=== PATIENT | male | born 1950 | race African-American/Black ===

== ENCOUNTER 2017-03-14 20:04 | Emergency (ER) | payer MEDICARE, BC ==
[~2017-03-14] VITALS: Ht 177.8 cm; Wt 108.9 kg
[2017-03-14] MEDS ORDERED: LIDOCAINE 1%/EPI 1:100,000 20 ML VIAL. INJ ONE (20:30)
[2017-03-14] MEDS ORDERED: IBUPROFEN 600 MG TABLET. PO ONE (21:30)
[2017-03-14] MEDS ORDERED: HYDROcodone/APAP 5/325MG 1 TAB TABLET PO ONE (21:30)
--- NOTE | 2017-03-14 22:04 | RAD ---
Exam performed: CT scan of the head and cervical spine without contrast. Date of Service: 03/14/2017. Comparison: None available Clinical History: Patient fell down 2 steps and hit left side of the head compared of headache and neck pain and laceration of the left eye Technique: Helical acquisitions are obtained from the foramen magnum to the vertex without intravenous administration of contrast. In addition helical acquisitions are obtained through the cervical spine. Sagittal and coronal reformatted images are obtained and reviewed. CT scan head findings: The ventricular system is midline without evidence of dilatation. Normal moran-white differentiation is maintained. There is no extra axial fluid collection, intraparenchymal hemorrhage or mass lesion. There is soft tissue swelling around the left orbit with a questionable lucency in the left frontal bone. Impression: 1. No acute intracranial process detected. 2. Lucency in the left frontal bone with overlying soft tissue swelling. A nondisplaced fracture is not excluded. Evaluation with CT maxillofacial maybe of additional benefit. End Impression. CT cervical spine findings: Normal sagittal alignment is preserved. The vertebral body heights and intravertebral disc spaces are maintained. There is no gama or retrolisthesis. No prevertebral soft tissue swelling is identified. Fracture C6 spinous process is noted. No definite lymphadenopathy or masses are seen within the neck. The visualized thyroid and salivary glands appears preserved. Impression: 1. Vertically oriented lucency in 6 transverse process represents a fracture. There is probable sclerosis of the fractured margin and this could represent a nonacute fracture. Correlation clinically PQRS Compliance Statement: One or more of the following individualized dose reduction techniques were utilized for this examination: 1. Automated exposure control 2. Adjustment of the mA and/or kV according to patient size 3. Use of iterative reconstruction technique Electronically signed by: Sabina Sanders MD (03/14/2017 10:00 PM) [facility]
--- NOTE | 2017-03-14 23:38 | RAD ---
CT maxillofacial and orbits without contrast History: Trauma Axial helical images of the face including the paranasal sinuses orbits and mandible were obtained without contrast. Axial and coronal reconstruction was performed. The nasal septum is mostly midline. The ostiomeatal complexes are narrow but patent. The paranasal sinuses are clear. The visualized osseous structures appear intact. There is soft tissue edema around the left orbit. Impression: No acute bony abnormality. PQRS Compliance Statement: One or more of the following individualized dose reduction techniques were utilized for this examination: 1. Automated exposure control 2. Adjustment of the mA and/or kV according to patient size 3. Use of iterative reconstruction technique Electronically signed by: Cuate Herrera III, MD (03/14/2017 11:34 PM) [facility]
[2017-03-15 01:00] VITALS: BP 141/66
[2017-03-15] MEDS ORDERED: HYDR-971 PO (01:10)
[2017-03-15] MEDS ORDERED: IBUP-1007 PO (01:10)
--- NOTE | 2017-03-15 01:10 | PHYS DOC ---
Past Medical History Past Medical History: High Cholesterol, Hypertension Past Surgical History: Other Additional Past Surgical Histo: BLE, BILATERA HIPS, HERNIA REPAIR, HEMORRHOID REPAIR, FACE Alcohol Use: Occasionally Drug Use: None Adult General Chief Complaint Chief Complaint: MECHANICAL FALL HPI HPI Patient is a 66 year old gentleman who presents here today secondary to a recent fall. Patient reports she was walking down the stairs to his basement when he tripped over the last 2 steps and fell into the wall across from the steps. Patient denies any loss of consciousness. Patient is complaining of some neck discomfort and left shoulder pain. Patient's tetanus status is up-to-date. He reports his last shot was less than 5 years ago. Patient denies any nausea or vomiting. Patient denies any amnesia. Patient denies any blurred vision or double vision. Patient has any weakness his upper or lower semis. Patient denies any paresthesias to his upper or lower extremities. Patient has a history significant for hip replacement, anal hernia repair, hypertension. Patient has any diabetes liver longer kidney problems. Patient denies any coronary disease. Patient denies any trauma to his neck in the past. In the ER the patient had a CT scan of his head and C-spine. Patient's CT scan revealed a questional left frontal lucency/fracture and a maxillofacial CT scan was dedicated was obtained. The maxilla facial CT scan do not reveal any frontal bone fracture. Patient had a CT scan of his C-spine which revealed a transverse process fracture of his C7. This appeared to have some sclerosis which was indicative of a likely old fracture however given the patient's tenderness in that areaconcerned that this might be a new fracture. I consulted Dr. Abdullahi for further assistance in management of the C-spine spinous process fracture. I spoke to his PA who spoke directly to him. She reports that he directly reviewed the CT scan and felt that the spinous process fracture of C7 appear to be old. After discussion with his PA she reports that this would be a fracture that we would place in a soft collar if it was new. I will assume that this is a new fracture than an old placed patient in a soft neck collar and she reports she will follow-up with him next week. Patient has a stellate laceration to his left forehead which was sutured by our PA, Catie Magdaleno. Patient's physical exam was significant for a stellate laceration to his left forehead. Patient had no point bony tenderness to his forehead. Patient's pupils were equally round and reactive to light. His affect promotions were intact. Patient's cranial nerves to 12 are all intact. Patient had some tenderness to palpation diffusely to his neck with no point bony tenderness that was specific to C7 however he was tender all throughout. Patient does have some tenderness to palpation to his left shoulder. Patient's full range of motion to his left shoulder. Patient has no point bony tenderness to his left clavicle or scapula. Patient's C-spine had full range of motion without any paresthesias or weakness his upper or lower extremities. Patient had full flexion/rotation of the C-spine with no paresthesias or weakness his upper or lower extremities. Patient's heart was regular rate and rhythm. Lungs were clear. Abdomen was soft nontender no rebound or guarding. All other bones are palpated and there was no tenderness to palpation appreciated. Patient's pelvis was stable. Patient's knees were nontender. Patient's elbows and wrists were nontender. Patient's L spine was nontender to palpation. Assessment and plan this is a 66-year-old gentleman who fell down 2 steps and hit his head against a wall. Patient had no loss of consciousness. However given the laceration and his age CT scan of his head and C-spine were obtained. Patient's CT scan of the C-spine revealed a C6 spinous process fracture. There was no other acute pathology noted. Case was discussed with Dr. Abdullahi's PA as well as Dr. Abdullahi himself through his PA who reviewed the CT scan prior to calling me back. They've recommended that we place the patient and a soft collar and they will follow up with him as an outpatient. Patient's pain is well -controlled and he is requesting to be discharged home and does not want to be admitted to the hospital for pain management. Review of Systems Review of Systems Constitutional: Denies fever or chills [] Eyes: Denies change in visual acuity, redness, or eye pain [] HENT: Denies nasal congestion or sore throat [] All other review systems are negative except as documented in the history of present illness portion. Current Medications Current Medications Current Medications Medications (Trade) Dose Ordered Sig/Tresa Start Time Stop Time Status Last Admin Dose Admin Acetaminophen/ Hydrocodone Bitart (Lortab 5/325) 1 tab 1X ONCE 03/14/17 21:30 03/14/17 21:31 DC 03/14/17 21:47 1 TAB Ibuprofen (Motrin) 600 mg 1X ONCE 03/14/17 21:30 03/14/17 21:31 DC 03/14/17 21:48 600 MG Lidocaine/ Epinephrine (Xylocaine 1%-Epi 1:100,000) 20 ml 1X ONCE 03/14/17 20:30 03/14/17 20:31 DC 03/14/17 20:36 20 ML Allergies Allergies Allergies Coded Allergies Type Severity Reaction Last Updated Verified Penicillins Allergy Unknown 03/14/17 Yes Physical Exam Physical Exam Constitutional: Well developed, well nourished, no acute distress, non-toxic appearance. [] HENT: Normocephalic, bilateral external ears normal, oropharynx moist, no oral exudates, nose normal. [] Eyes: PERRLA, EOMI, conjunctiva normal, no discharge. [] Neck: Normal range of motion, supple, no stridor. [] Cardiovascular:Heart rate regular rhythm, Lungs & Thorax: Bilateral breath sounds clear to auscultation [] Abdomen: Bowel sounds normal, soft, no tenderness, no masses, no pulsatile masses. [] Skin: Warm, dry, no erythema, no rash. [] Back: No tenderness, no CVA tenderness. [] Extremities: No tenderness, no cyanosis, no clubbing, ROM intact, no edema. [] Neurologic: Alert and oriented X 3, normal motor function, normal sensory function, no focal deficits noted. [] Psychologic: Affect normal, judgement normal, mood normal. [] Current Patient Data Vital Signs Vital Signs Date Time Temp Pulse Resp B/P (MAP) Pulse Ox O2 Delivery O2 Flow Rate FiO2 03/15/17 01:00 56 141/66 (91) 98 Room Air 03/14/17 20:15 98.3 20 98.3 EKG EKG [] Radiology/Procedures Radiology/Procedures Indication: Left eyebrow laceration Procedure: The patient was placed in the appropriate position and anesthesia around the laceration was lidocaine with epinephrine. The area was then explored for foreign objects, none was found, the laceration was cleaned with 10 ML of normal saline and Betadine. In the laceration was closed with 5 interrupted sutures using 5. 0 vicryl, exterior laceration was closed with 20 5 interrupted sutures using 5. 0 Vicryl. The wound area was then left VILMA. Total repaired wound length: approximately 15 cm in X pattern Other Items: none The patient tolerated the procedure well Complications:none Course & Med Decision Making Course & Med Decision Making Pertinent Labs and Imaging studies reviewed. (See chart for details) [] Dragon Disclaimer Dragon Disclaimer This electronic medical record was generated, in whole or in part, using a voice recognition dictation system. Departure Departure Impression: Primary Impression: Fracture of spinous process of cervical vertebra Additional Impressions: Concussion Forehead laceration Fall (on) (from) other stairs and steps, initial encounter Disposition: HOME, SELF-CARE Condition: IMPROVED Referrals: ALPA CRAIG MD (PCP) ROSHAN TAPIA MD Patient Instructions: Cervical Spine Fracture, Stable, Concussion and Brain Injury, Facial Laceration Additional Instructions: 1. Please call Dr. Abdullahi's office in the morning to make an appointment to see him next week. The phone number has been provided to you and your discharge instructions. 2. Please wear her soft collar until you are reevaluated by Dr. Abdullahi's service. 3. Please return the ER if you have any further concerns. Please return to the ER. Any weakness numbness or tingling in her upper or lower extremities. Please return to the ER if you have pain that is not resolved with the medicine that is being given too. 4. He will need a wound check in 2 days. He will need her sutures removed in 7 days. Scripts Hydrocodone/Apap 5-325 (NORCO 5-325 TABLET) 1 Each Tablet 1 TAB PO QID Y for PAIN, #20 TAB Prov: ISHAN WEAVER MD 03/15/17 Ibuprofen (IBUPROFEN) 600 Mg Tablet 600 MG PO PRN Q6HRS Y for PAIN, #20 TAB Prov: ISHAN WEAVER MD 03/15/17 Problem Qualifiers ISHAN WEAVER MD Mar 15, 2017 01:10 CATIE SNYDER APRN Mar 15, 2017 01:18
== END 2017-03-15 01:37 | disposition home or self-care (01) ==
LOC: ER 20:04
DX: S06.0X9A Concussion with loss of consciousness of unspecified duration, initial encounter (principal); S12.500A Unspecified displaced fracture of sixth cervical vertebra, initial encounter for closed fracture; S01.81XA Laceration without foreign body of other part of head, initial encounter; M25.512 Pain in left shoulder; E11.9 Type 2 diabetes mellitus without complications; E78.00 Pure hypercholesterolemia, unspecified; I10 Essential (primary) hypertension; Z88.0 Allergy status to penicillin; W10.8XXA Fall (on) (from) other stairs and steps, initial encounter; Y93.01 Activity, walking, marching and hiking; Y99.8 Other external cause status; Y92.89 Other specified places as the place of occurrence of the external cause
CPT/HCPCS: 12016; 70450; 70486; 72125; 99284; J3490

== ENCOUNTER 2020-12-24 09:59 | Emergency (ER) | payer BC, MEDICARE ==
[~2020-12-24] VITALS: Ht 177.8 cm; Wt 102.0 kg
[~2020-12-24 09:59] MED LIST: HYDR-3164 PO; IBUP-1007 PO
[2020-12-24 10:30] LABS: BASO % 0 % (0-3); EOS % 0 % (0-3); HEMATOCRIT 35.9 % (39.0-53.0); HEMOGLOBIN 12.4 g/dL (13.0-17.5); LYMPH # 0.9 x10^3/uL (1.0-4.8); LYMPH % 8 % (24-48); MEAN CORPUSCULAR HEMOGLOBIN 32 pg (25-35); MEAN CORPUSCULAR HGB CONC 35 g/dL (31-37); MEAN CORPUSCULAR VOLUME 92 fL (79-100); MONO # 0.7 x10^3/uL (0.0-1.1); MONO % 6 % (0-9); NEUT # 9.4 x10^3/uL (1.8-7.7); NEUT % 85 % (31-73); PLATELET COUNT 282 x10^3/uL (140-400); RED BLOOD COUNT 3.89 x10^6/uL (4.30-5.70); RED CELL DISTRIBUTION WIDTH 12.6 % (11.5-14.5)
[2020-12-24] MEDS ORDERED: fentaNYL PF VIAL 100 MCG/2 ML VIAL IVP ONE (10:30)
[2020-12-24 10:45] VITALS: BP 112/67
--- NOTE | 2020-12-24 10:52 | PHYS DOC ---
Past Medical History Past Medical History: High Cholesterol, Hypertension Past Surgical History: Other Additional Past Surgical Histo: BLE, BILATERA HIPS, HERNIA REPAIR, HEMORRHOID REPAIR, FACE Smoking Status: Never Smoker Alcohol Use: Occasionally Drug Use: None General Adult EDM: Chief Complaint: TESTICULAR PAIN OR INJURY HPI: HPI: Patient is a 70 year old male who presents with awoke this morning with scrotal swelling and tenderness especially to the left side. He rates his pain an 8 out of 10 states is very tender and sore. He denies any urinary symptoms, chest pain, fever, abdominal pain, nausea, vomiting, diarrhea, back pain, shortness of breath. He has a history of high cholesterol, hypertension, bilateral hip repair, hernia repair, hemorrhoids, marijuana use. Review of Systems: Review of Systems: Constitutional: Denies fever or chills. [] Eyes: Denies change in visual acuity. [] HENT: Denies nasal congestion or sore throat. [] Respiratory: Denies cough or shortness of breath. [] Cardiovascular: Denies chest pain or edema. [] GI: Denies abdominal pain, nausea, vomiting, bloody stools or diarrhea. [] : Denies dysuria. +Testicle pain[] Musculoskeletal: Denies back pain or joint pain. [] Integument: Denies rash. +scrotal swelling[] Neurologic: Denies headache, focal weakness or sensory changes. [] Endocrine: Denies polyuria or polydipsia. [] Lymphatic: Denies swollen glands. [] Psychiatric: Denies depression or anxiety. [] Heart Score: C/O Chest Pain: No Risk Factors: Risk Factors: DM, Current or recent (<one month) smoker, HTN, HLP, family history of CAD, obesity. Risk Scores: Score 0 - 3: 2.5% MACE over next 6 weeks - Discharge Home Score 4 - 6: 20.3% MACE over next 6 weeks - Admit for Clinical Observation Score 7 - 10: 72.7% MACE over next 6 weeks - Early Invasive Strategies Allergies: Allergies: Allergies Coded Allergies Type Severity Reaction Last Updated Verified Penicillins Allergy Unknown 03/14/17 Yes Physical Exam: PE: Constitutional: Well developed, well nourished, no acute distress, non-toxic appearance. [] HENT: Normocephalic, atraumatic, bilateral external ears normal, oropharynx moist, no oral exudates, nose normal. [] Eyes: PERRLA, EOMI, conjunctiva normal, no discharge. [] Neck: Normal range of motion, no tenderness, supple, no stridor. [] Cardiovascular:Heart rate regular rhythm, no murmur [] Lungs & Thorax: Bilateral breath sounds clear to auscultation [] Abdomen: Bowel sounds normal, soft, no tenderness, no masses, no pulsatile masses. Left testicle tenderness[] Skin: Warm, dry, no erythema, no rash. Scrotal redness that goes up into pelvic area on the left and swelling[] Back: No tenderness, no CVA tenderness. [] Extremities: No tenderness, no cyanosis, no clubbing, ROM intact, no edema. [] Neurologic: Alert and oriented X 3, normal motor function, normal sensory function, no focal deficits noted. [] Psychologic: Affect normal, judgement normal, mood normal. [] EKG: EK and read by Dr. Woods is sinus rhythm and no STEMI Radiology/Procedures: Radiology/Procedures: [] Impression: [facility] [address] [place] [address] IMAGING REPORT Signed PATIENT: CAPRI MONTANEZ ACCOUNT: [id number] : 1950 LOCATION: ER AGE: 70 SEX: M EXAM STATUS: REG ER ORD. PHYSICIAN: TAMIA RAYGOZA APRN REASON: left testicle tenderness, scrotal swelling PROCEDURE: TESTICULAR/SCROTUM Testicular ultrasound HISTORY: Left testicular swelling and pain Sonographic examination was performed of the scrotal contents and testes and multiple static images were obtained. The testes have normal echotexture and blood flow. The right testis measures 3.3 x 3.0 x 2.6 cm. The left testis measures 3.3 x 3.4 x 2.1 cm. There is complex fluid around the left testis. The obtaining my appear somewhat enlarged and hypervascular. IMPRESSION: 1. Normal testes with normal testicular blood flow. 2. Possible bilateral epididymitis left worse than right. 3. Small complex hydrocele on the left. A hematocele or pyocele is possible. Clinical correlation is suggested. Electronically signed by: Florence Honeycutt III, MD (12/24/2020 12:52 PM) [facility] DICTATED and SIGNED BY: FLORENCE HONEYCUTT III, MD DATE: 12/24/20 [id number] [facility] [address] [place] [address] IMAGING REPORT Signed PATIENT: CAPRI MONTANEZ ACCOUNT: [id number] : 1950 LOCATION: ER AGE: 70 SEX: M EXAM STATUS: REG ER ORD. PHYSICIAN: TAMIA RAYGOZA APRN REASON: scrotum pain with redness PROCEDURE: CT ABD PELV W/ IV CONTRST ONLY CT ABDOMEN+PELVIS W dated 12/24/2020 2:43 PM Indication:Reason: scrotum pain with redness / Spl. Instructions: / History: Comparison: No comparison is available. Technique: Images were performed through the abdomen and pelvis using an infusion of 75 mL Omnipaque 300. No oral contrast was given. One or more of the following individualized dose reduction techniques were utilized for this examination: 1. Automated exposure control 2. Adjustment of the mA and/or kV according to patient size 3. Use of iterative reconstruction technique Findings: The lung bases are clear. The liver and spleen are homogeneous in density and normal in configuration. Both kidneys enhance with contrast. No solid mass or obstruction is seen. There is a cyst arising posteriorly from the left kidney, and there may be some parapelvic cysts on each side. The adrenal glands are not enlarged. The pancreas appears normal. No retroperitoneal or mesenteric adenopathy is seen. There is no apparent abdominal mass or inflammatory process. A normal appendix is seen arising from the cecum. There is no evidence of bowel obstruction. Images through the pelvis show no apparent abnormality of the distal ureters or bladder. Evaluation is somewhat limited in the lower pelvis from artifact arising from the patient's hip prostheses. No pelvic or inguinal adenopathy is seen. There is no apparent pelvic mass or inflammatory process. In the scrotum, there is suggestion of possible scrotal wall thickening on the left with minimal hydrocele. IMPRESSION: No apparent acute abnormality in the abdomen or pelvis. There is suggestion of some left scrotal wall thickening and possibly a small left hydrocele. Electronically signed by: Berto Quiroz Jr., MD (12/24/2020 3:12 PM) [id number] DICTATED and SIGNED BY: BERTO QUIROZ Jr, MD DATE: 12/24/20 [id number] Course & Med Decision Making: Course & Med Decision Making Pertinent Labs and Imaging studies reviewed. (See chart for details) See HPI. Alert and oriented x4. Ambulatory with a steady gait. Speaks in full clear sentences. Left testicle tenderness. There is 1+ scrotal swelling with redness that does extend up into the pubic area. There appears to be scrotal cellulitis. Patient is hemodynamically stable. He is given clindamycin and Rocephin in the ED. Patient states he has no sexually-transmitted disease concerns and he does not have any penile discharge. Patient states he has a he is not had any second months. Ultrasound shows IMPRESSION: 1. Normal testes with normal testicular blood flow. 2. Possible bilateral epididymitis left worse than right. 3. Small complex hydrocele on the left. A hematocele or pyocele is possible. Clinical correlation is suggested. Electronically signed by: Florence Honeycutt III, MD (12/24/2020 12:52 PM) [facility] I have spoken to Dr. Forrest to see if this would be something that he would be willing to do surgical and if need be. Dr. Forrest states that patient needs to be sent somewhere with urology. After speaking with the patient, the patient agrees to being transferred to [facility]. Patient is accepted by Dr Rios at [facility] [] Carlito Disclaimer: Carlito Disclaimer: This electronic medical record was generated, in whole or in part, using a voice recognition dictation system. Departure Departure Impression: Primary Impression: Epididymitis, bilateral Additional Impression: Cellulitis of scrotum Disposition: 02 SHORT TERM HOSPITAL Condition: STABLE Referrals: ALPA CRAIG MD (PCP) TAMIA RAYGOZA HEALTH SERVICES ADMINISTRATOR December 24, 2020 10:52
[2020-12-24 11:34] LABS: CALCIUM 8.5 mg/dL (8.5-10.1); GFR 89.1; POTASSIUM 3.4 mmol/L (3.5-5.1)
[2020-12-24 11:39] LABS: ALBUMIN 3.3 g/dL (3.4-5.0); ALBUMIN/GLOBULIN RATIO 0.9 (1.0-1.7); TOTAL BILIRUBIN 0.7 mg/dL (0.2-1.0); TOTAL PROTEIN 6.8 g/dL (6.4-8.2)
[2020-12-24 12:50] LABS: % BANDS 15 % (0-9); % EOS 1 % (0-5); % LYMPHS 11 % (24-48); % MONOS 7 % (0-10); % SEGS 66 % (35-66)
--- NOTE | 2020-12-24 12:55 | RAD ---
Testicular ultrasound HISTORY: Left testicular swelling and pain Sonographic examination was performed of the scrotal contents and testes and multiple static images w ere obtained. The testes have normal echotexture and blood flow. The right testis measures 3.3 x 3.0 x 2.6 cm. The left testis measures 3.3 x 3.4 x 2.1 cm. There is complex fluid around the left testis. The obtaining my appear somewhat enlarged and hypervas cular. IMPRESSION: 1. Normal testes with normal testicular blood flow. 2. Possible bilateral epididymitis left worse than right. 3. Small complex hydrocele on the left. A hematocele or pyocele is possible. Clinical correlation is suggested. Electronically signed by: Cuate Herrera III, MD (12/24/2020 12:52 PM) [facility]
[2020-12-24 13:50] LABS: BILIRUBIN,URINE NEGATIVE (NEG); CLARITY,URINE CLEAR; COLOR,URINE YELLOW; NITRITE,URINE NEGATIVE (NEG); PH,URINE 7.5 (<5.0-8.0); PROTEIN,URINE NEGATIVE (NEG-TRACE)
[2020-12-24 14:23] LABS: BACTERIA,URINE 0 /HPF (0-FEW); HYALINE CASTS, URINE MODERATE /HPF; RBC,URINE 0 /HPF (0-2); WBC,URINE >40 /HPF (0-4)
[2020-12-24] MEDS ORDERED: cefTRIAXone IV Push 1 GM VIAL. IVP ONE (14:45)
[2020-12-24] MEDS ORDERED: IOHEXOL 300 MG/ML 100ML VIAL. IV ONE (14:45)
[2020-12-24] MEDS ORDERED: CONTRAST GIVEN. MC PRN (15:00)
[2020-12-24] MEDS ORDERED: CLINDAMYCIN 600MG PREMIX 50 ML IV ONE (15:00)
--- NOTE | 2020-12-24 15:14 | RAD ---
CT ABDOMEN+PELVIS W dated 12/24/2020 2:43 PM Indication:Reason: scrotum pain with redness / Spl. Instructions: / History: Comparison: No comparison is available. Technique: Images were performed through the abdomen and pelvis using an infusion of 75 mL Omnipaque 300. No oral contrast was given. One or more of the following individualized dose reduction techniques were utilized for this examinat ion: 1. Automated exposure control 2. Adjustment of the mA and/or kV according to patient size 3. Use of iterative reconstruction technique Findings: The lung bases are clear. The liver and spleen are homogeneous in density and normal in configuration . Both kidneys enhance with contrast. No solid mass or obstruction is seen. There is a cyst arising p osteriorly from the left kidney, and there may be some parapelvic cysts on each side. The adrenal gla nds are not enlarged. The pancreas appears normal. No retroperitoneal or mesenteric adenopathy is see n. There is no apparent abdominal mass or inflammatory process. A normal appendix is seen arising fro m the cecum. There is no evidence of bowel obstruction. Images through the pelvis show no apparent abnormality of the distal ureters or bladder. Evaluation i s somewhat limited in the lower pelvis from artifact arising from the patient's hip prostheses. No pe lvic or inguinal adenopathy is seen. There is no apparent pelvic mass or inflammatory process. In the scrotum, there is suggestion of possible scrotal wall thickening on the left with minimal hydrocele. IMPRESSION: No apparent acute abnormality in the abdomen or pelvis. There is suggestion of some left scrotal wall thickening and possibly a small left hydrocele. Electronically signed by: Moncho Quiroz Jr., MD (12/24/2020 3:12 PM) [id number]
[2020-12-24 16:20] LABS: PLT ESTIMATE ADEQUATE (ADEQUATE)
--- NOTE | 2020-12-24 19:40 | EKG ---
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
== END 2020-12-24 17:28 | disposition short-term general hospital (02) ==
LOC: ER 09:59
DX: N45.1 Epididymitis (principal); E78.00 Pure hypercholesterolemia, unspecified; I10 Essential (primary) hypertension; N43.3 Hydrocele, unspecified; Z88.0 Allergy status to penicillin
CPT/HCPCS: 36415; 74177; 76870; 80053; 81001; 83605; 83690; 84484; 85007; 85025; 87040; 87086; 87491; 87591; 93005; 96365; 96375; 99285; J0696; J3010; J3490; Q9967